=== PATIENT | male | born 1995 | race Caucasian/White ===

== ENCOUNTER 2018-11-05 09:53 | Emergency (ER) | payer OTHER ==
[~2018-11-05] VITALS: Ht 172.7 cm; Wt 77.9 kg
[2018-11-05] MEDS ORDERED: MAPA325T2 PO (09:58)
[2018-11-05] MEDS ORDERED: ALEV220C2 PO (09:58)
[2018-11-05 10:39] LABS: INFLUENZA A AMPLIFICATION NEGATIVE (NEGATIVE); INFLUENZA B AMPLIFICATION NEGATIVE (NEGATIVE)
[2018-11-05] MEDS ORDERED: ONDA4TAB6 PO (11:20)
[2018-11-05 11:31] VITALS: BP 117/58
== END 2018-11-05 11:38 | disposition home or self-care (01) ==
LOC: M ED 09:53
DX: R11.2 Nausea with vomiting, unspecified (principal); B34.9 Viral infection, unspecified; Z90.89 Acquired absence of other organs

== ENCOUNTER 2019-06-19 10:43 | Emergency (ER) | payer OTHER ==
[~2019-06-19] VITALS: Ht 175.3 cm; Wt 80.4 kg
[~2019-06-19 10:43] MED LIST: ALEV220C2 PO; MAPA325T2 PO; ONDA4TAB6 PO
[2019-06-19 10:44] VITALS: BP 140/79
--- NOTE | 2019-06-19 11:39 | REP ---
Left elbow series: Four views. History: Trauma. Findings: There is moderate soft tissue swelling about the olecranon process. There is no evidence of fracture, subluxation, or joint effusion. Impression: Moderate periarticular soft tissue swelling. No fracture seen. Electronically Signed by Brayden Aquino MD 06/19/2019 11:30 A
[2019-06-19] MEDS ORDERED: IBUP80TA PO (11:48)
== END 2019-06-19 12:17 | disposition home or self-care (01) ==
LOC: M ED 10:43
DX: M70.32 Other bursitis of elbow, left elbow (principal); S50.02XA Contusion of left elbow, initial encounter; X58.XXXA Exposure to other specified factors, initial encounter; Y92.89 Other specified places as the place of occurrence of the external cause; Y93.9 Activity, unspecified; Y99.1 Military activity; F17.200 Nicotine dependence, unspecified, uncomplicated

== ENCOUNTER 2020-10-08 07:24 | Emergency (ER) | payer OTHER ==
[~2020-10-08] VITALS: Ht 172.7 cm; Wt 79.6 kg
[~2020-10-08 07:24] MED LIST changes: +IBUP80TA PO; -MAPA325T2 PO; +MAPA325T8 PO
--- NOTE | 2020-10-08 08:23 | REP ---
INDICATION: injury, fall COMPARISON: None. TECHNIQUE: AP, lateral, bilateral oblique views left hand. FINDINGS: The osseous structures and joint spaces are intact and normal. There is no evidence for acute fracture or dislocation. Surrounding soft tissues are unremarkable. No subcutaneous emphysema or radiodense foreign body. IMPRESSION: . No acute fracture or dislocation. <Electronically signed by Marcellus Dias > 10/08/20 0819
[2020-10-08] MEDS ORDERED: ACETAMINOPHEN TAB 650MG DOSE (2X325MG) PO ONE (08:40)
[2020-10-08] MEDS ORDERED: KETOROLAC 30 MG/ML 1ML VIAL IM ONE (08:40)
[2020-10-08] MEDS ORDERED: KETO10TAB PO (09:37)
[2020-10-08] MEDS ORDERED: TYLE650T38 PO (09:37)
[2020-10-08 09:44] VITALS: BP 123/60
== END 2020-10-08 09:45 | disposition home or self-care (01) ==
LOC: M ED 07:24
DX: S63.602A Unspecified sprain of left thumb, initial encounter (principal); W19.XXXA Unspecified fall, initial encounter; Y92.9 Unspecified place or not applicable; Y93.9 Activity, unspecified; Y99.9 Unspecified external cause status; F17.290 Nicotine dependence, other tobacco product, uncomplicated
CPT/HCPCS: 73130; 96372; 99284; J1885

== ENCOUNTER 2021-01-08 13:06 | Emergency (ER) | payer OTHER ==
[~2021-01-08] VITALS: Ht 172.7 cm; Wt 84.0 kg
[2021-01-08 13:06] VITALS: BP 134/86
[~2021-01-08 13:06] MED LIST changes: +KETO10TAB PO; +TYLE650T38 PO
[2021-01-08] MEDS ORDERED: NAPR220C14 PO (13:45)
[2021-01-08] MEDS ORDERED: ECOT81TA5 PO (13:45)
[2021-01-08] MEDS ORDERED: CYCL5TAB PO (15:35)
[2021-01-08] MEDS ORDERED: NAPR-837 PO (15:35)
== END 2021-01-08 15:49 | disposition home or self-care (01) ==
LOC: M ED 13:06
DX: M62.830 Muscle spasm of back (principal)

== ENCOUNTER → 2021-11-23 | Outpatient (CLI) | payer OTHER ==
[~2021-11-23] MED LIST changes: +CYCL5TAB PO; +ECOT81TA5 PO; +NAPR-837 PO; +NAPR220C14 PO
== END ==
LOC: M SOG 15:40
PROVIDERS: ATTEND Physician Assistant
DX: S62.627A Displaced fracture of middle phalanx of left little finger, initial encounter for closed fracture (principal); X58.XXXA Exposure to other specified factors, initial encounter; Y92.9 Unspecified place or not applicable; Y93.9 Activity, unspecified; Y99.9 Unspecified external cause status

== ENCOUNTER 2022-12-03 23:20 | Emergency (ER) | payer OTHER ==
[~2022-12-03] VITALS: Ht 175.3 cm; Wt 87.1 kg
[2022-12-04] MEDS ORDERED: FAMOTIDINE 20MG/2ML VIAL IVP ONE (01:05)
[2022-12-04] MEDS ORDERED: NS 1,000 ML IV ONE (01:05)
[2022-12-04] MEDS ORDERED: diphenhydrAMINE 50MG/ML VIAL IV ONE (01:05)
[2022-12-04 01:29] LABS: BASO # 0.1 10^3/uL (0.0-0.2); BASO % 0.8 % (0.0-1.0); EOS # 0.2 10^3/uL (0.0-0.5); EOS % 2.2 % (0.0-3.0); HEMATOCRIT 47.8 % (42.0-52.0); HEMOGLOBIN 15.8 g/dl (13.5-17.5); MEAN CORPUSCULAR HEMOGLOBIN 29.3 pg (27.0-33.0); MEAN CORPUSCULAR HGB CONC 33.1 g/dl (32.0-36.5); MEAN CORPUSCULAR VOLUME 88.5 fl (80.0-96.0); MONO # 0.7 10^3/uL (0.0-0.8); MONO % 8.8 % (2.0-8.0); NEUTROPHILS # 5.3 10^3/uL (1.5-8.5); NEUTROPHILS % 63.5 % (36.0-66.0); PLATELET COUNT, AUTOMATED 276 10^3/uL (150-450); WHITE BLOOD COUNT 8.3 10^3/uL (4.0-10.0)
[2022-12-04 01:54] LABS: CK-MB VALUE MASS < 1.0 NG/ML (<3.6)
[2022-12-04 01:56] LABS: ALBUMIN 3.6 G/DL (3.2-5.2); ALKALINE PHOSPHATASE 84 U/L (46-116); ALT/SGPT 47 U/L (7.0-40); AST/SGOT 32 U/L (<34); BILIRUBIN,TOTAL 0.8 MG/DL (0.3-1.2); BLOOD UREA NITROGEN 9 MG/DL (9-23); CALCIUM LEVEL 8.5 MG/DL (8.5-10.1); CARBON DIOXIDE LEVEL 28 MMOL/L (20-31); CHLORIDE LEVEL 106 MMOL/L (98-107); CREATININE FOR GFR 0.78 MG/DL (0.70-1.30); GLOMERULAR FILTRATION RATE > 60.0 (>60); GLUCOSE, FASTING 93 MG/DL (60-100); POTASSIUM SERUM 4.6 MMOL/L (3.5-5.1); SODIUM LEVEL 139 MMOL/L (136-145); TOTAL PROTEIN 6.3 G/DL (5.7-8.2)
[2022-12-04 01:57] LABS: CPK CREATINE PHOSPHOKINASE 73 U/L (46-171); MB/CK RELATIVE INDEX 1.36 (< OR =4)
[2022-12-04 02:08] LABS: RSV AMPLIFICATION NEGATIVE (NEGATIVE)
[2022-12-04 04:03] LABS: MONO SCRN NEGATIVE (NEGATIVE)
[2022-12-04] MEDS ORDERED: KETOROLAC 30 MG/ML 1ML VIAL As Ordered ONE (04:30)
[2022-12-04] MEDS ORDERED: KETOROLAC 30 MG/ML 1ML VIAL IV ONE (04:30)
[2022-12-04] MEDS ORDERED: METOCLOPRAMIDE INJ 10MG/2ML VIAL IV ONE (04:30)
[2022-12-04] MEDS ORDERED: ISOVUE-370 76% 100ML VIAL As Ordered ONE (06:35)
[2022-12-04 07:12] LABS: AMPHETAMINES LEVEL URINE NEGATIVE (NEGATIVE); BARBITURATES URINE NEGATIVE (NEGATIVE); BENZODIAZEPINES URINE NEGATIVE (NEGATIVE); CANNABINOIDS URINE NEGATIVE (NEGATIVE); COCAINE METABOLITE URINE NEGATIVE (NEGATIVE); METHADONE URINE NEGATIVE (NEGATIVE); OPIATES URINE NEGATIVE (NEGATIVE); PHENCYCLIDINE URINE NEGATIVE (NEGATIVE)
[2022-12-04] MEDS ORDERED: BENA25CA4 PO (09:02)
[2022-12-04] MEDS ORDERED: PRED20TA PO (09:02)
[2022-12-04] MEDS ORDERED: CHLO1.4S7 MT (09:09)
[2022-12-04 09:24] VITALS: BP 118/62
== END 2022-12-04 09:25 | disposition home or self-care (01) ==
LOC: M ED 23:20
DX: T78.40XA Allergy, unspecified, initial encounter (principal); Z79.82 Long term (current) use of aspirin; Z79.899 Other long term (current) drug therapy
CPT/HCPCS: 70491; 71046; 80053; 80307; 81002; 82550; 82553; 83605; 84484; 85025; 86308; 87040; 87077; 87631; 93041; 94760; 96361; 96374; 96375; 99284; J1100; J1200; J1885; J2765; Q9967; S0028